=== PATIENT | female | born 1945 | race Caucasian/White ===

== ENCOUNTER → 2018-06-09 08:03 | Outpatient (CLI) | payer MEDICARE, SELFPAY ==
[2018-06-09 08:09] LABS: Microscopic, Urine URINE MICROSCOPIC (MICROSCOPIC)
[2018-06-09 13:31] LABS: Appearance,Urine CLEAR (Clear); Bilirubin,Urine Negative (Negative); Blood, Urine Negative (Negative); Color,Urine YELLOW (Yellow); Glucose,Urine (UA) Negative (Negative); Ketones,Urine Negative (Negative); Leukocyte Esterase,Urine Negative (Negative); Nitrate,Urine Negative (Negative); Protein,Urine Negative (Negative); Urobilinogen,Urine 0.2 EU/dl (0.2)
[2018-06-09 13:55] LABS: Basophils % 0.4 % (0.1-2.0); Eosinophils # 0.4 K/mm3 (0.0-0.4); Hematocrit 34.2 % (37.0-47.0); Hemoglobin 11.2 g/dL (12.2-16.2); Lymphocytes # 1.6 K/mm3 (0.7-4.5); Lymphocytes % 22.6 % (10-50); Mean Corpuscular HGB Conc 32.7 g/dL (31.8-35.4); Mean Corpuscular Hemoglobin 29.5 pg (27.0-31.2); Mean Corpuscular Volume 90.1 fl (81-99); Mean Platelet Volume 7.9 fl (7.4-10.4); Monocytes # 0.5 K/mm3 (0.1-1.0); Monocytes % 6.3 % (1.7-9.3); Neutrophils # 4.7 K/mm3 (1.8-7.8); Neutrophils % 64.7 % (37.0-80.0); Platelet Count 200 K/mm3 (142-424); Red Cell Distribution Width 12.7 % (11.5-17.5); White Blood Count 7.2 K/mm3 (4.8-10.8)
[2018-06-09 13:58] LABS: Bacteria,Urine Trace /lpf; Squamous Epithelial Cell,Urine Occasional #/hpf (0-5); WBC,Urine Occasional #/hpf (0-3)
[2018-06-09 14:20] LABS: Alanine Aminotransferase 68 U/L (12-78); Albumin Level 3.3 gm/dL (3.4-5.0); Albumin/Globulin Ratio 0.8 (1.1-1.8); Alkaline Phosphatase 211 U/L (46-116); Anion Gap 13.6 mEq/L (5-15); Aspartate Amino Transferase 39 U/L (15-37); Bilirubin,Total 0.4 mg/dL (0.2-1.0); Blood Urea Nitrogen 32 mg/dL (7-18); Calcium 9.1 mg/dL (8.5-10.1); Carbon Dioxide 30 mmol/L (21.0-32.0); Chloride 97 mmol/L (98-107); Chol/HDL Ratio 2.8 (1-3.5); Cholesterol 161 mg/dL (140-200); Estimated Glomerular Filt Rate 40 ml/min (>60); GFR (African American) 49 ML/MIN (>60); Globulin 4.1 gm/dl (1.3-3.2); Glucose 99 mg/dL (74-106); HDL Cholesterol 57 mg/dL (29-89); LDL Cholesterol 85 mg/dL (0-130); Potassium 3.6 mmoL/L (3.5-5.1); Sodium 137 mmol/L (136-145); Thyroid Stimulating Hormone 0.74 uIU/ml (0.358-3.740); Total Protein,Serum 7.4 gm/dL (6.4-8.2); Triglycerides 96 mg/dL (30-200); VLDL Cholesterol 19 mg/dL (0-40)
[2018-06-09 14:50] LABS: Erythrocyte Sedimentation Rate > 120 mm/hr (0-30)
[2018-06-10 08:36] LABS: Iron 46 ug/dL (27-139); UIBC 237 ug/dL (118-369)
[2018-06-10 09:58] LABS: Folate 16.4 ng/mL (>3.0); Iron Saturation 16 % (15-55)
[2018-06-10 09:59] LABS: Vitamin B12 699 pg/mL (232-1245)
== END ==
PROVIDERS: PCP Emergency Medicine; Visit Provider Emergency Medicine
DX: I10 Essential (primary) hypertension (principal); D64.9 Anemia, unspecified; E78.5 Hyperlipidemia, unspecified; E03.9 Hypothyroidism, unspecified
CPT/HCPCS: 36415; 80053; 80061; 81001; 82607; 82746; 83540; 83550; 84443; 84550; 85025; 85651

== ENCOUNTER → 2019-04-29 08:04 | Outpatient (CLI) | payer MEDICARE, SELFPAY ==
[2019-04-29 13:53] LABS: Basophils % 0.8 % (0.1-2.0); Eosinophils # 0.3 K/mm3 (0.0-0.4); Eosinophils % 6.9 % (0.1-12.0); Hematocrit 36.8 % (37.0-47.0); Hemoglobin 11.3 g/dL (12.2-16.2); Lymphocytes # 1.5 K/mm3 (0.7-4.5); Lymphocytes % 31.9 % (10-50); Mean Corpuscular HGB Conc 30.6 g/dL (31.8-35.4); Mean Corpuscular Hemoglobin 28.5 pg (27.0-31.2); Mean Corpuscular Volume 92.9 fl (81-99); Mean Platelet Volume 8.4 fl (7.4-10.4); Monocytes # 0.4 K/mm3 (0.1-1.0); Monocytes % 8.1 % (1.7-9.3); Neutrophils # 2.5 K/mm3 (1.8-7.8); Neutrophils % 52.3 % (37.0-80.0); Platelet Count 181 K/mm3 (142-424); Red Blood Count 3.96 M/mm3 (4.20-5.40); Red Cell Distribution Width 13.4 % (11.5-17.5); White Blood Count 4.8 K/mm3 (4.8-10.8)
[2019-04-29 13:56] LABS: Anion Gap 10.7 mEq/L (5-15); Blood Urea Nitrogen 30 mg/dL (7-18); Calcium 8.8 mg/dL (8.5-10.1); Carbon Dioxide 32 mmol/L (21.0-32.0); Chloride 99 mmol/L (98-107); Creatinine,Serum 1.31 mg/dL (0.55-1.02); Estimated Glomerular Filt Rate 40 ml/min (>60); GFR (African American) 48 ML/MIN (>60); Glucose 94 mg/dL (74-106); Potassium 3.7 mmoL/L (3.5-5.1); Sodium 138 mmol/L (136-145)
[2019-04-30 10:11] LABS: Iron 75 ug/dL (27-139); UIBC 206 ug/dL (118-369)
[2019-04-30 14:28] LABS: Iron Saturation 27 % (15-55); Vitamin D 25 Hydroxy 38.3 ng/mL (30.0-100.0)
== END ==
PROVIDERS: PCP Emergency Medicine; Visit Provider Emergency Medicine
DX: D64.9 Anemia, unspecified (principal)
CPT/HCPCS: 36415; 80048; 82652; 83540; 83550; 85025

== ENCOUNTER → 2019-06-26 08:33 | Outpatient (CLI) | payer MEDICARE, SELFPAY ==
[2019-06-26 08:36] LABS: Microscopic, Urine URINE MICROSCOPIC (MICROSCOPIC)
[2019-06-26 13:54] LABS: Appearance,Urine CLEAR (Clear); Bilirubin,Urine Negative (Negative); Blood, Urine Negative (Negative); Color,Urine YELLOW (Yellow); Glucose,Urine (UA) Negative (Negative); Ketones,Urine Negative (Negative); Leukocyte Esterase,Urine Negative (Negative); Nitrate,Urine Negative (Negative); PH,Urine 6.5 (5.0-8.5); Protein,Urine Negative (Negative); Specific Gravity, Urine <= 1.005 (1.005-1.030); Urobilinogen,Urine 0.2 EU/dl (0.2)
[2019-06-26 13:59] LABS: Alanine Aminotransferase 55 U/L (12-78); Albumin Level 3.5 gm/dL (3.4-5.0); Albumin/Globulin Ratio 0.9 (1.1-1.8); Alkaline Phosphatase 172 U/L (46-116); Anion Gap 11.3 mEq/L (5-15); Aspartate Amino Transferase 39 U/L (15-37); Bilirubin,Total 0.4 mg/dL (0.2-1.0); Blood Urea Nitrogen 32 mg/dL (7-18); Calcium 8.9 mg/dL (8.5-10.1); Carbon Dioxide 32 mmol/L (21.0-32.0); Chloride 95 mmol/L (98-107); Chol/HDL Ratio 2.8 (1-3.5); Cholesterol 169 mg/dL (140-200); Creatine Kinase 115 U/L (26-192); Creatinine,Serum 1.24 mg/dL (0.55-1.02); Estimated Glomerular Filt Rate 42 ml/min (>60); GFR (African American) 51 ML/MIN (>60); Globulin 3.7 gm/dl (1.3-3.2); Glucose 96 mg/dL (74-106); HDL Cholesterol 60 mg/dL (29-89); LDL Cholesterol 96 mg/dL (0-130); Potassium 4.3 mmoL/L (3.5-5.1); Sodium 134 mmol/L (136-145); Thyroid Stimulating Hormone 0.19 uIU/ml (0.358-3.740); Total Protein,Serum 7.2 gm/dL (6.4-8.2); Triglycerides 64 mg/dL (30-200); VLDL Cholesterol 13 mg/dL (0-40)
[2019-06-26 14:18] LABS: WBC,Urine Occasional #/hpf (0-3)
[2019-06-27 17:54] LABS: Vitamin D 25 Hydroxy 34.6 ng/mL (30.0-100.0)
[2019-06-30 09:08] LABS: Iron 56 ug/dL (27-139); UIBC 192 ug/dL (118-369)
[2019-06-30 14:46] LABS: Iron Saturation 23 % (15-55)
== END ==
PROVIDERS: PCP Emergency Medicine; Visit Provider Emergency Medicine
DX: E78.5 Hyperlipidemia, unspecified (principal); E03.9 Hypothyroidism, unspecified; I10 Essential (primary) hypertension; E61.1 Iron deficiency
CPT/HCPCS: 36415; 80053; 80061; 81001; 82550; 82652; 83540; 83550; 84443

== ENCOUNTER → 2020-01-21 07:10 | Outpatient (CLI) | payer MEDICARE, SELFPAY ==
[2020-01-21 13:34] LABS: Chloride 103 mmol/L (98-107)
[2020-01-21 13:35] LABS: Potassium 4.2 mmoL/L (3.5-5.1); Sodium 140 mmol/L (136-145)
[2020-01-21 13:38] LABS: Anion Gap 12.2 mEq/L (5-15); Blood Urea Nitrogen 34 mg/dl (7-17); Calcium 10.2 mg/dl (8.4-10.2); Carbon Dioxide 29 mmol/L (22.0-30.0); Estimated Glomerular Filt Rate 37 ml/min (>60); GFR (African American) 44 ML/MIN (>60); Glucose 95 mg/dl (74-100)
== END ==
PROVIDERS: Visit Provider Nurse Practitioner Family
DX: M25.562 Pain in left knee (principal)
CPT/HCPCS: 36415; 80048

== ENCOUNTER 2022-09-14 10:00 | Outpatient (RCR) | payer MEDICARE, SELFPAY | END 2022-09-18 14:27 | disposition home or self-care (01) | LOC: PT 10:00 | PROVIDERS: PCP Emergency Medicine; Visit Provider Orthopaedic Surgery | DX: M17.12 Unilateral primary osteoarthritis, left knee (principal); M25.562 Pain in left knee; Z96.652 Presence of left artificial knee joint | CPT/HCPCS: 97010; 97014; 97110; 97116; 97140; 97163; 97164; 97530; G0283 ==

== ENCOUNTER 2025-04-07 08:35 | Outpatient (CLI) | payer MEDICARE, SELFPAY ==
--- NOTE | 2025-04-07 08:37 | CT_ITS ---
FINAL REPORT TECHNIQUE: Pre- and postcontrast images of the abdomen were performed by computed tomography. Multiplanar reconstructions in the sagittal and coronal planes were subsequently performed. This study was performed with techniques to keep radiation doses as low as reasonably achievable (ALARA). Individualized dose reduction techniques using automated exposure control or adjustment of mA and/or kV according to the patient's size were employed. CLINICAL HISTORY: ABNORMAL LEVELS OF OTHER SERUM ENZYMES COMPARISON: None FINDINGS: There are numerous bilateral benign-appearing renal cysts, some mildly complex with mural calcification. The largest cyst is in the lower pole of the left kidney, measuring 52 mm in size. The largest right renal cyst is in the lateral mid portion of the kidney measuring 51 mm in diameter. In the pancreas, there are probably 2 hypodense cystic lesions in the pancreatic head and uncinate process that measure nearly 1 cm in diameter each. These may represent chronic pseudocysts, cystic neoplasm, or developmental cyst. There is no pancreatic or biliary ductal dilatation. The spleen is normal in appearance. There is an oval cyst present in the left hepatic lobe measuring up to 27 mm in size. The gallbladder has been surgically resected. There is adenopathy in the kota hepatis which measures nearly 2 cm in diameter. Visualized bowel in the abdomen is unremarkable. IMPRESSION: 1. There are cystic lesions of the pancreatic head and uncinate process as described, that measure nearly 1 cm in size each, favored to be related to polycystic renal disease given bilateral renal cysts and a left hepatic cyst. CT with contrast to follow in 6 months to demonstrate stability. 2. Mild nonspecific adenopathy of the kota hepatis, which can be followed as well with CT. Reviewed, Interpreted and Dictated by Maria Antonia Rosado MD Transcribed by Mónica Lockhart Authenticated and [facility]
[2025-04-07 09:14] LABS: Blood Urea Nitrogen 38 mg/dl (7-17); Creatinine,Serum 1.60 mg/dl (0.52-1.04); Estimated Glomerular Filt Rate 31 ml/min (>60); GFR (African American) 38 ML/MIN (>60)
[2025-04-07] MEDS: SODIUM CHLORIDE 0.9% 10ML SYR (RAD ONLY) 10 ML IV (09:58)
[2025-04-07] MEDS: IOPAMIDOL-370 (76%);100ML BOTTLE 75 ML IV (09:58)
== END 2025-04-07 23:59 | disposition home or self-care (01) ==
LOC: RAD 08:35
PROVIDERS: PCP Nurse Practitioner Family; Visit Provider Nurse Practitioner Family
DX: K86.2 Cyst of pancreas (principal); N28.1 Cyst of kidney, acquired; K76.89 Other specified diseases of liver; R59.0 Localized enlarged lymph nodes; R74.8 Abnormal levels of other serum enzymes
CPT/HCPCS: 36415; 74170; 82565; 84520; Q9967